=== PATIENT | female | born 1935 | race Caucasian/White ===

== ENCOUNTER 2017-12-05 15:55 | Observation (INO) | payer MEDICARE ==
[2017-12-05] MEDS ORDERED: ISOVUE-370 76%-LOCM 1 ML ONE (16:36)
--- NOTE | 2017-12-05 17:03 | RAD ---
AP VIEW CHEST: 12/05/17 HISTORY: Dyspnea. AP view chest obtained on 12/05/17. Comparison made to previous exam from 10/22/15. AP view chest demonstrates sternotomy wires seen. There is a dual lead intracardiac defibrillator. No evidence of acute intrathoracic abnormality is seen. No evidence of effusions, pneumonia or pneumoth orax seen. IMPRESSION: Unremarkable AP view chest. POS: [facility]
[2017-12-05 17:48] LABS: #Basophils 0.1 thou/uL (0.0-0.2); #Eosinphils 0.1 thou/uL (0.0-0.7); #Lymphocytes 2.3 thou/uL (1.20-3.40); #Monocytes 0.7 thou/uL (0.11-0.59); #Neutrophils 6.5 thou/uL (1.40-6.50); %Basophils 0.9 % (0.0-1.0); %Eosinophils 0.6 % (0.0-10.0); %Lymphocytes 24.2 % (21.0-51.0); %Monocytes 7.1 % (0.0-10.0); %Neutrophils 67.1 % (42.0-75.0); Hemoglobin 12.3 g/dL (12.0-16.0); Mean Corpuscular HGB CONC 33.2 g/dL (32.0-36.0); Mean Corpuscular Hemoglobin 32.7 pg (27.0-31.0); Mean Corpuscular Volume 98.6 fl (81.0-99.0); Platelet Count 231 thou/uL (130-400); RBC Distribution Width 11.3 % (11.5-14.5); Red Blood Cell (RBC) Count 3.76 mill/uL (4.20-5.40); White Blood Cell (WBC) Count 9.7 thou/uL (4.8-10.8)
[2017-12-05 17:55] LABS: INR-International Normal Ratio 1.2; Prothrombin Time 15.4 SEC (12.0-14.7)
[2017-12-05 18:07] LABS: ALT (SGPT) 11 U/L (8-55); AST (SGOT) 18 U/L (5-34); Albumin 3.4 g/dL (3.4-4.8); Alkaline Phosphatase 82 U/L (40-150); Anion Gap 16 mmol/L (10-20); BUN (Urea Nitrogen) 19 mg/dL (9.8-20.1); Bilirubin, Total 0.8 mg/dL (0.2-1.2); Calc. Creatinine Clearance 0 mL/min (70-130); Calcium 8.9 mg/dL (7.8-10.44); Carbon Dioxide 21 mmol/L (23-31); Chloride 100 mmol/L (98-107); Estimated GFR-MDRD 49; Globulin 3.1 g/dL (2.4-3.5); Glucose 91 mg/dL (83-110); Lipase 24 U/L (8-78); Magnesium 1.5 mg/dL (1.6-2.6); Potassium 4.1 mmol/L (3.5-5.1); Protein, Total 6.5 g/dL (6.0-8.3); Sodium 133 mmol/L (136-145)
[2017-12-05 18:11] LABS: CKMB 1.7 ng/mL (0-6.6); Troponin I Less than 0.010 ng/mL (< 0.028)
[2017-12-05 18:32] LABS: Bilirubin Negative (Negative); Blood, Urine Negative (Negative); Clarity CLOUDY (Clear); Glucose, Urine (Dipstick) Negative (Negative); Leukocyte Large (Negative); Nitrite Negative (Negative); Protein, Urine (Dipstick) Negative (Neg-Trace); Specific Gravity, Urine 1.014 (1.002-1.036)
[2017-12-05 18:36] LABS: Bacteria/HPF 2+ HPF (None Seen); Hyaline Casts/LPF 7-10 HYALINE CAST LPF (0-3 Hyaline); Pathc Cast-AUWi Flag 2.03 (0-2.49); RBC/HPF 0-3 HPF (0-3)
[2017-12-05] MEDS ORDERED: Magnesium Sulfate 2 GM/100 ML BAG ONE (18:36)
[2017-12-05 18:39] LABS: Yeast-AUWi Flag 26.4 (0-25.0)
[2017-12-05 19:04] LABS: Yeast-All Forms None Seen HPF (None Seen)
--- NOTE | 2017-12-05 20:43 | CT ---
CT PULMONARY ANGIO OF CHEST WITH CONTRAST 12/05/17 Multiple axial tomograms obtained through the chest with IV enhancement following pulmonary angio pro tocol with multiplanar reconstruction and 3D postprocessing. HISTORY: Chest pain, shortness of breath. No evidence of pulmonary embolus identified. There are chronic lung parenchymal changes with mild hyp erexpansion. No focal lung infiltrate or effusion. There are calcified mediastinal and hilar lymph nodes indicating prior granulomatous process. Numerou s splenic calcifications. Compression of a mid thoracic vertebra. IMPRESSION: 1. No evidence of pulmonary embolus. 2. No acute lung process identified. POS: [facility]
[2017-12-05 21:38] LABS: Troponin I 0.019 ng/mL (< 0.028)
[2017-12-05] MEDS ORDERED: Ondansetron ODT 4 MG TAB SL PRN (22:11)
[2017-12-05] MEDS ORDERED: Acetaminophen 325 MG TAB PO PRN (22:11)
[2017-12-05] MEDS ORDERED: Ondansetron HCl/PF 4 MG/2 ML Vial IVP PRN (22:11)
[2017-12-05 22:40] VITALS: BMI 24.5
[2017-12-06 00:15] LABS: Troponin I Less than 0.010 ng/mL (< 0.028)
[2017-12-06] MEDS ORDERED: Diazepam 5 MG TAB PO PRN (09:05)
[2017-12-06] MEDS ORDERED: Acetaminophen/Codeine 30-300mg Tablet PO PRN (09:05)
[2017-12-06] MEDS ORDERED: traMADol HCl 50 MG TAB PO PRN (09:05)
--- NOTE | 2017-12-06 10:58 | HP ---
DATE OF ADMISSION: 12/06/2017 ADMITTING PHYSICIAN: Dr. Demetris Taylor. [facility] [place] CHIEF COMPLAINT: Fatigue, shortness of breath. HISTORY OF PRESENT ILLNESS: The patient is an 82-year-old female, mildly demented. Patient reported ly experienced several bouts of shortness of breath and hypotension while at clinic in [place]. The allan ramirez was also found to have an irregular heartbeat with an O2 saturation of 85% on room air. The allan ramirez has a history of coronary artery disease and was sent here for further evaluation in light of all her comorbidities. When she arrived here, her dyspnea had improved. The patient denies any ches t pain or shortness of breath upon my interview, but she does report a CT again increased weakness ov er the last several months. REVIEW OF SYSTEMS: The following complete review of systems was negative, unless otherwise mentioned in the HPI or below: Constitutional: Weight loss or gain, sense of well-being, ability to conduct usual activities, exercise tolerance. Skin/Breast: Rash, itching, changes in hair growth or loss, n ail changes, breast lumps, tenderness, swelling, nipple discharge. Eyes: Vision, double vision, tea ring, blind spots, pain. ENT/Mouth: Headaches (location, time of onset, duration, precipitating fac tors), vertigo, lightheadedness, injury. Vision, double vision, tearing, blind spots, pain, nose ble eding, colds, obstruction, discharge, dental difficulties, gingival bleeding, dentures, neck stiffnes s, pain, tenderness, masses in thyroid or other areas. Cardiovascular: Precordial pain, substernal distress, palpitations, syncope, dyspnea on exertion, orthopnea, nocturnal paroxysmal dyspnea, edema, cyanosis, hypertension, heart murmurs, varicosities, phlebitis, claudication. Respiratory: Pain, s hortness of breath, wheezing, stridor, cough, hemoptysis, fever or night sweats. Gastrointestinal: Poor appetite, dysphagia, indigestion, abdominal pain, heartburn, eructation, nausea, vomiting, hemat emesis, jaundice, constipation, or diarrhea, abnormal stools (shae-colored, tarry, bloody, greasy, fo ul smelling), flatulence, hemorrhoids, recent changes in bowel habits. Genitourinary: Urgency, freq uency, dysuria, nocturia, hematuria, polyuria, oliguria, unusual (or change in) color of urine, stone s, hesitancy, change in size of stream, dribbling, acute retention or incontinence, libido, potency. Musculoskeletal: Pain, swelling, redness or heat of muscles or joints, limitation, of motion, muscu lar weakness, atrophy, cramps. Neurologic/Psychiatric: Convulsions, paralyses, tremor, incoordinati on, parasthesias, difficulties with memory of speech, sensory or motor disturbances, or muscular coor dination (ataxia, tremor), emotional problems, anxiety, depression, previous psychiatric care, unusua l perceptions, hallucinations. Allergy/Immunologic: Skin rash, anemia, bleeding tendency, polydipsia, polyuria, intolerance to heat or cold. PAST MEDICAL HISTORY: Positive for coronary artery disease, congestive heart failure, dyslipidemia, hypertension. PAST SURGICAL HISTORY: Significant for pacemaker defibrillator placement, CABG x3, tonsillectomy. FAMILY HISTORY: Reviewed and noncontributory to this case. PSYCHIATRIC HISTORY: Positive for anxiety. SOCIAL HISTORY: She denies alcohol or illicit drugs. She is a former tobacco user[place] DRUG ALLERGIES: PENICILLINS. HOME MEDICATIONS: Include furosemide 20 mg every other day, Aldactone 12.5 mg 1 daily, lisinopril 5 mg 1 every day, simvastatin 40 mg every day, metoprolol 25 mg every day, aspirin 81 mg every day, Zol oft 50 mg every day, enzyme CoQ10 of 200 mg every day, vitamin D3 of 4 grams every day, iron 325 mg e very day, fish oil every day, montelukast 10 mg every day, melatonin 5 mg at bedtime, tramadol 50 mg p.r.n., Valium 5 mg p.r.n. PHYSICAL EXAMINATION: VITAL SIGNS: Temperature of 98.1, pulse 74, respirations 16, O2 sats 100% on 2 liters, blood pressur e 91/50. GENERAL: She is a pleasant lady in no acute distress. EYES: PERRL. Extraocular muscles intact. ENT: External ear normal, nose normal, no blood from the nares. NECK: Supple, full range of motion. No JVD present. ABDOMEN: Nontender, nondistended. Positive bowel sounds. EXTREMITIES: No clubbing, cyanosis, trace edema bilaterally. NEUROLOGIC: No focal deficits. Full range of motion of all extremities. Alert and oriented x2. SKIN: Warm, dry, and multiple bruises ecchymoses. LABORATORIES AND IMAGES: CBC shows a white count of 9.7, hemoglobin 12.3, hematocrit 37.1, platelets 231. PT 15.4, INR 1.2. D-dimer 0.72. Chem-7 shows sodium of 133, potassium 4.1, chloride 100, CO2 of 21, BUN 19, creatinine 1.08, glucose 91, calcium 8.9, mag 1.5, AST 18, ALT 11, CK-MB 1.7. Tropon in I less than 0.01, followup 0.019. BNP of 38. Albumin 3.4. TSH of 2.54. Urinalysis, yellow, anthony udy, positive ketones, large leukocyte esterase, too numerous to count white blood cells, bacteria 2+ , squamous cells 11-20. No yeast. Chest CTA: No evidence of pulmonary embolus, no acute lung proce ss identified. Chest x-ray dual lead intracardiac defibrillator, no evidence of effusions, pneumonia , or pneumothorax. ASSESSMENT AND PLAN: 1. Urinary tract infection consistent with possible pyelonephritis. 2. Sepsis. 3. Congestive heart failure. 4. Hypertension. PLAN: The patient will be admitted to telemetry observation at this point. We will continue with IV fluoroquinolones treatment. Deep venous thrombosis prophylaxis with sequential compression devices and cautious fluid resuscitation in light of patient's diagnosis of heart failure.
[2017-12-06] MEDS ORDERED: Spironolactone 25 MG TAB PO SCH (11:00)
[2017-12-06] MEDS ORDERED: Furosemide 20 MG TAB PO SCH (11:00)
[2017-12-06] MEDS ORDERED: Lisinopril 5 MG TAB PO SCH (11:00)
[2017-12-06] MEDS ORDERED: Allopurinol 100 MG TAB PO SCH (11:00)
[2017-12-06] MEDS ORDERED: Atorvastatin Calcium 40 MG TAB PO SCH (21:00)
[2017-12-07 05:11] LABS: Eosinophils 2 % (0-10); Hemoglobin 11.1 g/dL (12.0-16.0); Lymphocytes 36 % (21-51); MDiff Complete? YES; Mean Corpuscular HGB CONC 33.5 g/dL (32.0-36.0); Mean Corpuscular Hemoglobin 33.3 pg (27.0-31.0); Mean Corpuscular Volume 99.5 fl (81.0-99.0); Mean Platelet Volume 7.8 fL (7.4-10.4); Monocytes 5 % (0-10); Neutrophil 57 % (42-75); Platelet Count 198 thou/uL (130-400); RBC Distribution Width 11.5 % (11.5-14.5); Red Blood Cell (RBC) Count 3.33 mill/uL (4.20-5.40); White Blood Cell (WBC) Count 6.7 thou/uL (4.8-10.8)
[2017-12-07 08:25] VITALS: BP 104/53; TEMP 97.4
[2017-12-07] MEDS ORDERED: Furosemide 20 MG TAB PO SCH (09:00)
[2017-12-07] MEDS ORDERED: Spironolactone 25 MG TAB PO SCH (09:00)
[2017-12-07] MEDS ORDERED: Allopurinol 100 MG TAB PO SCH (09:00)
[2017-12-07] MEDS ORDERED: Lisinopril 5 MG TAB PO SCH (09:00)
--- NOTE | 2017-12-07 17:21 | DIS ---
DATE OF ADMISSION: 12/05/2017 DATE OF DISCHARGE: 12/07/2017 PRIMARY DISCHARGE DIAGNOSES: 1. Urinary tract infection. 2. Sepsis secondary to above. 3. Chronic systolic heart failure. HOSPITAL COURSE: The patient is a pleasant 82-year-old that had presented complaining of fatigue and shortness of breath. She was found to be hypoxic with an O2 saturation of 85%. The patient was not ed to have a urinalysis, which was positive for bacteria as well as leukocyte esterase. The patient was treated with IV levofloxacin. Her clinical course improved during her short stay. Her oxygenati on improved as well as her symptoms of fatigue and shortness of breath. The patient was deemed stabl e for discharge with outpatient levofloxacin therapy. DISCHARGE DISPOSITION: To home. DISCHARGE DIET: Heart healthy, low salt. DISCHARGE MEDICATIONS: Please see home med rec list. We have added a 3-day course of Levaquin 500 m g p.o. q. day. DISCHARGE ACTIVITY: As tolerated. PHYSICAL EXAMINATION: GENERAL: She is in no acute distress. HEART: Shows a regular rate and rhythm. LUNGS: Rhonchi present, scant wheezes. ABDOMEN: Nontender, nondistended. EXTREMITIES: No clubbing, cyanosis. There is trace edema bilaterally. NEUROLOGIC: Full range of motions of all extremities. Cranial nerves II-XII are grossly intact. CONSULTATIONS: None. PROCEDURES: Chest CTA, which was negative for pulmonary embolus or any acute lung process. FOLLOWUP: The patient is to follow up with her PCP in 1-2 weeks and return to the emergency room if needed.
--- NOTE | 2017-12-08 14:38 | EKG ---
Test Reason : Blood Pressure : / mmHG Vent. Rate : 081 BPM Atrial Rate : 081 BPM P-R Int : 154 ms QRS Dur : 116 ms QT Int : 426 ms P-R-T Axes : 025 -64 066 degrees QTc Int : 494 ms Normal sinus rhythm Left axis deviation No STEMI Abnormal ECG Confirmed by RAMEZ Valdovinos, LEONOR ([id number]), photo editor JUANITA HARDY ([id number]) on 12/08/2017 2:38:07 PM Referred By: Confirmed By:LEONOR MYRICK M.D.
== END 2017-12-07 10:31 | disposition home or self-care (01) ==
LOC: ERS 15:55 → 2SE 20:17
PROVIDERS: ADMIT Emergency Medicine; ATTEND Emergency Medicine
DX: A41.9 Sepsis, unspecified organism (principal); N39.0 Urinary tract infection, site not specified; I11.0 Hypertensive heart disease with heart failure; I50.22 Chronic systolic (congestive) heart failure; Z88.0 Allergy status to penicillin; I25.10 Atherosclerotic heart disease of native coronary artery without angina pectoris; E78.5 Hyperlipidemia, unspecified; F41.9 Anxiety disorder, unspecified; I25.2 Old myocardial infarction; Z87.891 Personal history of nicotine dependence; Z79.82 Long term (current) use of aspirin; Z79.899 Other long term (current) drug therapy; Z95.0 Presence of cardiac pacemaker; Z95.1 Presence of aortocoronary bypass graft
CPT/HCPCS: 71045; 71275; 82274; 82553; 83605; 83690; 83735; 83880; 84484 ×2; 85007; 85027; 85379; 85610; 87040; 87086; 93005; 96361; 96365; 96367; 99285; G0378; 36415; 80053; 81003; 81015; 84443; 85025; J1956; J3475